=== PATIENT | female | born 1980 | race Caucasian/White ===

== ENCOUNTER 2016-05-25 09:57 | Day surgery (SDC) | payer OTHER ==
[2016-05-17 11:53] VITALS: BMI 20.9
[2016-05-25] MEDS ORDERED: TRIAMCINOLONE ACET 40MG/1ML VIAL ONE (10:28)
[2016-05-25] MEDS ORDERED: LIDOCAINE HCL 2% (20ML MULTI-DOSE VIAL) NR ONE (10:29)
[2016-05-25] MEDS ORDERED: BUPIVACAINE HCL/PF 0.5% (5MG/ML) 10 ML VIAL ONE (10:29)
[2016-05-25] MEDS ORDERED: LIDOCAINE 1%-EPI 1:100,000 30 ML MDV IJ ONE (10:30)
[2016-05-25] MEDS ORDERED: MIDAZOLAM HCL 2 MG/2 ML SINGLE DOSE VIAL ONE (11:34)
[2016-05-25] MEDS ORDERED: PROPOFOL 20 ML ONE ×4 (11:51)
[2016-05-25] MEDS ORDERED: BUPIVACAINE HCL 0.5% 250 MG/50 ML VIAL NR ONE (12:10)
[2016-05-25] MEDS ORDERED: LIDOCAINE HCL 2% (50ML VIAL) PNB ONE (12:10)
[2016-05-25] MEDS ORDERED: TRIAMCINOLONE ACET 40MG/1ML VIAL IJ ONE (13:50)
[2016-05-25 14:30] VITALS: TEMP 98.9
[2016-05-25 15:17] VITALS: BP 115/82; PULSE 66
--- NOTE | 2016-05-26 16:06 | OP ---
DATE OF OPERATION: 05/25/2016 PREOPERATIVE DIAGNOSIS: Right foot hallux valgus deformity; hammertoe number 1, hammertoe number 2, all right foot; exostosis of medial 2nd toe; and skin lesion, medial 2nd toe, all right foot. POSTOPERATIVE DIAGNOSIS: Right foot hallux valgus deformity; hammertoe number 1, hammertoe number 2, all right foot; exostosis of medial 2nd toe; and skin lesion, medial 2nd toe, all right foot. PROCEDURE: Long-arm Uziel bunionectomy with 3.0 Osteomed screw fixation and John osteotomy of the great toe with plantar flexion, and also an extensor hallucis tendon lengthening at the proximal interphalangeal joint with stable fixation for the osteotomy, 10 mm, and hammertoe correction, distal interphalangeal joint number 2 and medial incision, excision of exostosis and excision of lesion, all right foot. PROCEDURE DESCRIPTION: The patient was prepped and draped in the usual sterile manner and, under satisfactory local anesthesia with IV sedation and a right ankle tourniquet at 250 mmHg, attention was directed to the medial aspect of the 1st MPJ, where a medial incision bunionectomy was performed. All procedure were performed carefully preserving neurovascular structures, clamping, ligating, and Bovie'ing bleeders were necessary. Incision was made down through the joint capsule. A linear capsulotomy was performed. Hypertrophic dorsal and medial eminences exposed into the wound and resected with sagittal saw. An osteotomy was performed in the medial aspect of the 1st metatarsal head, a long arm Uziel type. The capital fragment was moved over to the corrected position. It was put in place with a guidewire. An intraoperative x-ray confirmed a good position and a 3.0 screw was placed and the fixation was noted to be stable and hypertrophic bone was removed smoothly. Attention was then directed to the medial aspect of the hallux, where an osteotomy was performed, a wedge-shaped osteotomy, John type, and also slightly plantar flexor because the hallux was sticking up in the air. She had a ski jump type hallux. Following this procedure, the toe was straighter, however, was still sticking up in the air at the IPJ and it was determined to do a release of the tendon at the IPJ. An extensor release was performed medial and laterally around the joint. A joint release was also performed including the collateral ligament area, and the hallux sat in a much more corrected and straight position. The wounds were flushed with copious saline. A 2.0 Vicryl was used to close the capsule, 1st MPJ, a 3.0 Vicryl was used to close the subcutaneous, and 5-0 nylon was used to close the skin. Also a medial incision was performed on the 2nd toe, where there was an exostosis and a skin lesion. The skin lesion was removed and the exostosis was excised with a rongeur and rasped smooth. The patient tolerated all procedures and anesthesia well and, following deflation of the tourniquet, after the bandage was placed, left the operating room in stable condition. JOSE JUAN CARPIO/[id number]
--- NOTE | 2016-05-28 11:05 | PATH ---
Surgical Pathology Report Patient Name: [facility]A [facility]. Rec. #: [id number] /Age/Gender: 1980 (Age: 35) / F Account: [id number] Location: [facility] AMBULATORY Taken: 05/26/2016 Received: 05/26/2016 Reported: 05/28/2016 Physicians: Travis Arevalo M.D. Specimen(s) Received BONE RIGHT 1ST AND 2ND TOE AND TISSUE Clinical History Hammertoe deformity Final Diagnosis BONE AND TISSUE, RIGHT FIRST AND SECOND TOE, EXCISION: CARTILAGE-CAPPED BONE SHOWING DEGENERATIVE CHANGES OF OVERLYING CARTILAGE. Electronically Signed Patricia Montemayor M.D. Gross Description Received in formalin, labeled "bone right first and second toe and tissue," are 3 woodson, irregular portions of bone ranging from 1.1 x 0.5 x 0.4 cm to 2.0 x 1.7 x 0.4 cm. [employer] sections are submitted in one cassette, following decalcification. 05/26/201605/26/2016
== END 2016-05-25 15:23 | disposition home or self-care (01) ==
LOC: FASU 09:57
PROVIDERS: ATTEND Podiatrist Foot Surgery
PROC: 0QBQ0ZZ Excision of Right Toe Phalanx, Open Approach (ICD-10-PCS; principal; 2016-05-25 11:30)
PROC: 0QSQ04Z Reposition Right Toe Phalanx with Internal Fixation Device, Open Approach (ICD-10-PCS; 2016-05-25 11:30)
PROC: 0SGP0ZZ (ICD-10-PCS; 2016-05-25 11:30)
DX: M20.11 Hallux valgus (acquired), right foot (principal)
CPT/HCPCS: 73660-TC; 84703; 88304-TC; 88311-TC